=== PATIENT | female | born 1960 | race Caucasian/White ===

== ENCOUNTER → 2023-06-19 | Outpatient (CLI) | payer OTHER ==
--- NOTE | 2023-06-19 10:28 | CT ---
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 CONTRAST: CT scan of the neck is performed following with IV Contrast, patient injected with 100 ml mL of Isovu e 300. Axial images are obtained, coronal and sagittal reformatted images are reviewed. FINDINGS: NECK: Airway: No gross abnormality seen. Parotid/submandibular glands: No gross abnormality seen. Carotid/Vascular Structures: No significant stenosis. Osseous Structures: Multilevel hypertrophic and degenerative changes of the spine. Lymph nodes: No pathologic sized lymph nodes measuring greater than 1 cm in short axis. Shotty subcen timeter nonpathologic scattered lymph nodes bilaterally. Other: Calcified nodule in the right thyroid which is mildly prominent. Thyroid prominent in size ext ending substernally. CHEST: Mild emphysematous changes. There are no suspicious pulmonary nodules, consolidation or pulmonary [place]. Basilar subsegmental atelectasis right lung base. Aorta of normal caliber. Trace amount of pericardial fluid. Postsurgical change involving the left br east. Heart size normal. There is a fat-containing lipoma along the right lateral chest wall. Spleen is enlarged measuring 14 cm. Liver slightly reduced in attenuation can be associated with mild hepatic steatosis. Mild thickening\nodularity of the bilateral adrenal gland too small to characteri ze. Most likely in the basis of benign adenoma or hyperplasia. There is a small hiatal hernia. Mitral annular calcification noted. No pathologic adenopathy in the neck, mediastinum, hilum or axilla. IMPRESSION: 1. No evidence of neck mass or pathologic adenopathy. 2. COPD with no evidence of intrathoracic metastases. 3. Benign-appearing right thyroid calcified nodule or calcification. 4. Mild splenomegaly.
== END | disposition home or self-care (01) ==
LOC: RADCTMAIN 08:33
PROVIDERS: ATTEND Internal Medicine Hematology & Oncology
DX: J44.9 Chronic obstructive pulmonary disease, unspecified (principal); R16.1 Splenomegaly, not elsewhere classified; C50.212 Malignant neoplasm of upper-inner quadrant of left female breast; E07.89 Other specified disorders of thyroid; E03.9 Hypothyroidism, unspecified; Z17.1 Estrogen receptor negative status [ER-]; Z71.3 Dietary counseling and surveillance
CPT/HCPCS: 70491; 71260; Q9967